=== PATIENT | male | born 2000 | race Caucasian/White ===

== ENCOUNTER 2021-07-18 06:29 | Emergency (ER) | payer MEDICAID ==
[~2021-07-18] VITALS: Ht 167.6 cm; Wt 70.2 kg
--- NOTE | 2021-07-18 07:14 | NUR ---
Patient exhibited labile behavior when told we were cleaning a room for him. Many profane descriptions were hurled at this mortgage or loan underwriter and hospital staff. Patient states "why do I need a room now? My fucking crisis is over." Patient exited triage door and marched out of ED with family and friends.
[2021-07-18 07:18] VITALS: BP 124/78
== END 2021-07-18 07:21 | disposition left against medical advice (07) ==
LOC: ER 06:30
DX: R06.02 Shortness of breath (principal); Z53.21 Procedure and treatment not carried out due to patient leaving prior to being seen by health care provider